=== PATIENT | female | born 1990 | race American Indian/Alaskan Native ===

== ENCOUNTER 2018-02-07 10:23 | Emergency (ER) | payer OTHER ==
[2018-02-07 11:18] VITALS: O2SAT 100; BMI 29.9
[2018-02-07] MEDS ORDERED: Sodium Chloride 0.9% 1,000 ML IV STA (11:18)
[2018-02-07 11:26] VITALS: TEMP 98.2
[2018-02-07 11:53] LABS: BASO # 0.02 K/mm3 (0.0-2.0); BASO % 0.3 % (0.0-3.0); EOS # 0.1 (0.0-0.7); EOS % 1.3 % (1.5-5.0); GRAN # 3.62 (1.4-6.5); GRAN % 52.3 % (50.0-68.0); HEMOGLOBIN 13.6 g/dL (12.0-16.0); LYMPH # 2.7 (1.2-3.4); LYMPH % 39.5 % (22.0-35.0); MEAN CELL VOLUME 89.8 fl (80.0-105.0); MEAN CORPUSCULAR HEMOGLOBIN 30.7 pg (25.0-35.0); MEAN CORPUSCULAR HGB CONC 34.2 g/dl (31.0-37.0); MEAN PLATELET VOLUME 10.4 fl (7.0-11.0); MONO # 0.5 (0.1-0.6); MONO % 6.6 % (1.0-6.0); RBC 4.43 10^6/uL (3.5-6.1); RED CELL DISTRIBUTION WIDTH 13.1 % (11.5-14.5); WHITE BLOOD COUNT 6.9 10^3/ul (4.5-11.0)
[2018-02-07 11:57] LABS: URINE BILIRUBIN NEGATIVE (NEGATIVE); URINE BLOOD NEGATIVE (NEGATIVE); URINE GLUCOSE (UA) NEGATIVE (NEGATIVE); URINE LEUKOCYTE ESTERASE NEGATIVE Leu/uL (NEGATIVE); URINE PROTEIN TRACE mg/dL (<30 mg/dL); URINE UROBILINOGEN 0.2 E.U./dL (<1 E.U./dL)
[2018-02-07 11:58] LABS: URINE APPEARANCE CLEAR (CLEAR); URINE COLOR YELLOW (YELLOW)
[2018-02-07 11:59] LABS: HCG,QUALITATIVE URINE NEGATIVE (NEGATIVE)
[2018-02-07 12:01] LABS: ALB/GLOB RATIO 1.4 (1.1-1.8); ALBUMIN 4.5 g/dL (3.0-4.8); ALT/SGPT 49 U/L (7-56); AST/SGOT 36 U/L (14-36); BLOOD UREA NITROGEN 13 mg/dL (7-21); CALCIUM 9.6 mg/dL (8.4-10.5); GFR AFRICAN-AMERICAN > 60; GFR NON-AFRICAN AMERICAN > 60; LIPASE 52 U/L (23-300)
[2018-02-07 12:02] LABS: INR 1.05 (0.93-1.08); PARTIAL THROMBOPLASTIN TIME 32.5 Seconds (25.1-36.5); PROTHROMBIN TIME 12.1 SECONDS (9.4-12.5)
[2018-02-07 12:05] LABS: URINE BACTERIA FEW (NEG); URINE RBC 0 - 2 /hpf (0-2); URINE WBC 0 - 2 /hpf (0-6)
[2018-02-07 12:49] VITALS: RESP 18
--- NOTE | 2018-02-07 12:50 | ED PDOC ---
Arrival/HPI - General Chief Complaint: Abdominal Pain Time Seen by Provider: 02/07/18 10:57 Historian: Patient - History of Present Illness Narrative History of Present Illness (Text): 02/07/18 11:44 A 27 year old female, with no significant past medical history, presents to the emergency department complaining of abdominal pain for a few days. Patient reports experiencing no pain while here in the ER right now. Patient denies any fever or any other complaints at this time. No PMD Past Medical History - Provider Review Nursing Documentation Reviewed: Yes - Psychiatric Hx Substance Use: No Family/Social History - Physician Review Nursing Documentation Reviewed: Yes Family/Social History: No Known Family HX Smoking Status: Never Smoked Hx Alcohol Use: No Hx Substance Use: No Allergies/Home Meds Allergies/Adverse Reactions: Allergies No Known Allergies Allergy (Verified 02/07/18 11:15) Home Medications: Home Meds Medication Instructions Recorded Confirmed Unobtainable 02/07/18 02/07/18 Review of Systems - Physician Review All systems were reviewed & negative as marked: Yes - Review of Systems Constitutional: absent: Fevers Gastrointestinal: Abdominal Pain Physical Exam Vital Signs Reviewed: Yes Vital Signs Temp Pulse Resp BP Pulse Ox 02/07/18 13:30 79 18 132/79 100 02/07/18 12:49 89 18 138/86 100 02/07/18 11:25 98.2 F 02/07/18 11:15 97 H 17 142/90 100 Blood Pressure: Normal Pulse: Regular Respiratory Rate: Normal Appearance: Positive for: Well-Appearing Pain Distress: None Mental Status: Positive for: Alert and Oriented X 3 - Systems Exam Head: Present: Atraumatic, Normocephalic Pupils: Present: PERRL Extroacular Muscles: Present: EOMI Conjunctiva: Present: Normal Mouth: Present: Moist Mucous Membranes Neck: Present: Normal Range of Motion Respiratory/Chest: Present: Clear to Auscultation, Good Air Exchange. No: Respiratory Distress, Accessory Muscle Use Cardiovascular: Present: Regular Rate and Rhythm, Normal S1, S2. No: Murmurs Abdomen: No: Tenderness, Distention, Peritoneal Signs Back: Present: Normal Inspection Upper Extremity: Present: Normal Inspection. No: Cyanosis, Edema Lower Extremity: Present: Normal Inspection. No: Edema Neurological: Present: GCS=15, CN II-XII Intact, Speech Normal Skin: Present: Warm, Dry, Normal Color. No: Rashes Psychiatric: Present: Alert, Oriented x 3, Normal Insight, Normal Concentration Medical Decision Making ED Course and Treatment: 02/07/18 11:48 Impression: 27 year old female with abdominal pain. Benign physical exam. Plan: -- Labs -- Tylenol -- IV Fluids -- Reassess and disposition Progress Notes: 02/07/18 17:00 abd sof tno ttp in emergency room. pt in er specificially requesting serum beta hcg. neg. pt advised outpt fu and return precautions. no rlq ttp. - Lab Interpretations Lab Results: 02/07/18 11:45 02/07/18 11:45 Lab Results 02/07/18 11:56: Beta HCG, Quant < 2.39 02/07/18 11:54: Urine Color Yellow, Urine Appearance Clear, Urine pH 6.0, Ur Specific [place] >= 1.030, Urine Protein Trace H, Urine Glucose (UA) Negative, Urine Ketones Negative, Urine Blood Negative, Urine Nitrate Negative, Urine Bilirubin Negative, Urine Urobilinogen 0.2, Ur Leukocyte Esterase Negative, Urine RBC 0 - 2, Urine WBC 0 - 2, Ur Epithelial Cells 4 - 5, Urine Bacteria Few , Urine HCG, Qual Negative 02/07/18 11:45: Sodium 142, Potassium 4.0, Chloride 103, Carbon Dioxide 29, Anion Gap 15, BUN 13, Creatinine 0.6 L, Est GFR ( Amer) > 60, Est GFR ( Non-Af Amer) > 60, Random Glucose 90, Calcium 9.6, Total Bilirubin 0.7, AST 36, ALT 49, Alkaline Phosphatase 93, Total Protein 7.7, Albumin 4.5, Globulin 3.2, Albumin/Globulin Ratio 1.4, Lipase 52 02/07/18 11:45: PT 12.1, INR 1.05, APTT 32.5 02/07/18 11:45: WBC 6.9, RBC 4.43, Hgb 13.6, Hct 39.8, MCV 89.8, MCH 30.7, MCHC 34.2, RDW 13.1, Plt Count 326, MPV 10.4, Gran % 52.3, Lymph % (Auto) 39.5 H, [place] % (Auto) 6.6 H, Eos % (Auto) 1.3 L, Baso % (Auto) 0.3, Gran # 3.62, Lymph # (Auto) 2.7, [place] # (Auto) 0.5, Eos # (Auto) 0.1, Baso # (Auto) 0.02 - Medication Orders Current Medication Orders: Discontinued Medications Acetaminophen (Tylenol 325mg Tab) 650 mg PO STAT STA Stop: 02/07/18 11:46 Last Admin: 02/07/18 12:01 Dose: 650 mg MAR Pain/Vitals Document 02/07/18 12:01 HI (Rec: 02/07/18 12:01 HI [id number]) Pain Reassessment Is This A Pain ReAssessment? No Location Pain Location Body Site Abdomen Sodium Chloride (Sodium Chloride 0.9%) 1,000 mls @ 1,000 mls/hr IV .Q1H STA Stop: 02/07/18 12:17 Last Admin: 02/07/18 11:56 Dose: 1,000 mls/hr eMAR Start Stop Document 02/07/18 11:56 HI (Rec: 02/07/18 11:56 HI [id number]) Intravenous Solution Start Date 02/07/18 Start Time 11:56 - Scribe Statement The provider has reviewed the documentation as recorded by the Rolando Moran Provider Scribe Attestation: All medical record entries made by the Scribe were at my direction and personally dictated by me. I have reviewed the chart and agree that the record accurately reflects my personal performance of the history, physical exam, medical decision making, and the department course for this patient. I have also personally directed, reviewed, and agree with the discharge instructions and disposition. Disposition/Present on Arrival - Present on Arrival Any Indicators Present on Arrival: No History of DVT/PE: No History of Uncontrolled Diabetes: No Urinary Catheter: No History of Decub. Ulcer: No History Surgical Site Infection Following: None - Disposition Have Diagnosis and Disposition been Completed?: Yes Diagnosis: Abdominal pain Disposition: HOME/ ROUTINE Disposition Time: 05:00 Condition: STABLE Discharge Instructions (ExitCare): Acute Abdomen (Belly Pain), Adult (DC) Additional Instructions: follow up with specialist. return to er with worsening symptoms or concerns. Referrals: Jair Rubio MD [Staff Provider] - Follow up with primary Forms: [employer] ([place])
[2018-02-07 13:49] VITALS: BP 132/79; PULSE 79
== END 2018-02-07 14:17 | disposition home or self-care (01) ==
LOC: ED 10:23
DX: R10.9 Unspecified abdominal pain (principal)
CPT/HCPCS: 80053; 81001; 83690; 84702; 84703; 85025; 85610; 85730; 99284; J7040